=== PATIENT | female | born 1980 | race Caucasian/White ===

== ENCOUNTER → 2021-06-08 | Outpatient (CLI) | payer OTHER ==
[~2021-06-08] MED LIST: MULVITMINE PO
== END ==
LOC: LAB SHORT 14:01
DX: R21 Rash and other nonspecific skin eruption (principal)
CPT/HCPCS: 88312

== ENCOUNTER → 2023-03-20 | Outpatient (CLI) | payer OTHER | END | disposition home or self-care (01) | LOC: LAB SHORT 15:45 → LAB 15:45 | DX: N64.52 Nipple discharge (principal) | CPT/HCPCS: 84146 ==

== ENCOUNTER → 2023-06-08 | Outpatient (CLI) | payer OTHER ==
[2023-06-10 18:06] LABS: HPV 16 Negative (Negative); HPV 18 Negative (Negative); HPV OTHER HR TYPES Negative (Negative)
== END ==
LOC: LAB 18:16 → LAB SHORT 18:16
PROVIDERS: Family Medicine
DX: Z01.419 Encounter for gynecological examination (general) (routine) without abnormal findings (principal)
CPT/HCPCS: 87624; G0145

== ENCOUNTER 2024-01-01 09:09 | Emergency (ER) | payer OTHER ==
[~2024-01-01] VITALS: Ht 170.2 cm; Wt 93.9 kg
[2024-01-01 09:35] VITALS: BP 142/97
== END 2024-01-01 12:03 | disposition home or self-care (01) ==
LOC: ER 09:09
DX: O9A.213 Injury, poisoning and certain other consequences of external causes complicating pregnancy, third trimester (principal); S52.122A Displaced fracture of head of left radius, initial encounter for closed fracture; W01.0XXA Fall on same level from slipping, tripping and stumbling without subsequent striking against object, initial encounter; Z3A.33 33 weeks gestation of pregnancy; Z79.899 Other long term (current) drug therapy

== ENCOUNTER 2024-02-05 22:41 | Inpatient (IN) | payer OTHER ==
[~2024-02-05] VITALS: Ht 170.2 cm; Wt 97.2 kg
[2024-02-05 23:02] VITALS: BP 136/94
[2024-02-05] MEDS ORDERED: Ampicillin Sod 2,000 MG in NS 100 ML IV STA (23:14)
[2024-02-05] MEDS ORDERED: Bupivacaine HCl 2.5 MG/ML 10ML P/F Injection XX SCH (23:15)
[2024-02-05] MEDS ORDERED: Calcium Carbonate 500 MG Tab Chew PO PRN (23:15)
[2024-02-05] MEDS ORDERED: FentaNYL 2mcg/ml-Bup 0.1% Epd 250 ML EPI PRN (23:15)
[2024-02-05] MEDS ORDERED: Lactated Ringer's 1,000 ML IV PRN ×2 (23:15)
[2024-02-05] MEDS ORDERED: Castor Oil 59.146 ML BTL TOP SCH (23:15)
[2024-02-05] MEDS ORDERED: Misoprostol 200 MCG Tab PR SCH (23:15)
[2024-02-05] MEDS ORDERED: Lidocaine HCl 1% 30 ML SDV XX SCH (23:15)
[2024-02-05] MEDS ORDERED: Methylergonovine Maleate 0.2MG / ML 1ML Amp IM SCH (23:15)
[2024-02-05] MEDS ORDERED: Ondansetron HCl 2 MG / ML 2ML Vial IV PRN (23:15)
[2024-02-05] MEDS ORDERED: ePHEDrine Sulfate 50 MG/ML 1ML Injection XX PRN (23:15)
[2024-02-05] MEDS ORDERED: FentaNYL Citrate 50 MCG/ML 2 ML Injection IV PRN (23:15)
[2024-02-05] MEDS ORDERED: LR Oxytocin 20 Units 1,000 ML IV SCH (23:15)
[2024-02-05] MEDS ORDERED: Bupivacaine 0.5% HCl 5 MG/ML 30MLVIAL XX SCH (23:15)
[2024-02-05] MEDS ORDERED: Acetaminophen 500 MG Tab PO PRN (23:15)
[2024-02-05] MEDS ORDERED: Oxytocin 10 Unit / ML Vial IM SCH (23:15)
[2024-02-05] MEDS ORDERED: Lactated Ringer's 1,000 ML IV SCH (23:15)
[2024-02-05 23:55] LABS: BASOPHILS ABSOLUTE AUTO 0.01 K/mm3 (0.00-0.23); BASOPHILS PERCENT AUTO 0 % (0-2); EOSINOPHILS ABSOLUTE AUTO 0.09 K/mm3 (0.00-0.68); EOSINOPHILS PERCENT AUTO 1 % (0-6); Hematocrit 32.6 % (33.0-51.0); Hemoglobin 11.3 g/dL (11.5-16.0); IMMATURE GRAN ABSOLUTE AUTO 0.07 K/mm3 (0.00-0.10); IMMATURE GRAN PERCENT AUTO 1 % (0-1); LYMPHOCYTES ABSOLUTE AUTO 1.76 K/mm3 (0.84-5.20); LYMPHOCYTES PERCENT AUTO 20 % (21-46); MONOCYTES ABSOLUTE AUTO 0.92 K/mm3 (0.16-1.47); MONOCYTES PERCENT AUTO 10 % (4-13); Mean Corpuscular HGB 31.5 pg (26.0-34.0); Mean Corpuscular HGB Conc 34.7 g/dL (31.5-36.5); Mean Corpuscular Volume 91 fL (80-100); NEUTROPHILS ABSOLUTE AUTO 6.18 K/mm3 (1.96-9.15); NEUTROPHILS PERCENT AUTO 68 % (41-73); Platelet Count 146 K/mm3 (150-400); RDW Coefficient Variation 14.7 % (11.7-14.2); RDW Standard Deviation 48.3 fL (35.1-46.3); Red Blood Cell Count 3.59 M/mm3 (3.80-5.20); White Blood Cell Count 9.03 K/mm3 (4.00-11.30)
[2024-02-06] VITALS (13 sets, daily range): BP systolic 118–147; BP diastolic 70–97
[2024-02-06] MEDS ORDERED: Ampicillin Sod 1,000 MG in NS 100 ML IV SCH (04:00)
[2024-02-06] MEDS ORDERED: Lactated Ringer's 1,000 ML IV SCH (05:40)
[2024-02-06] MEDS ORDERED: Docusate Sodium 100 MG Cap PO PRN (05:40)
[2024-02-06] MEDS ORDERED: Ibuprofen 400 MG Tab PO PRN (05:40)
[2024-02-06] MEDS ORDERED: Witch Hazel/Glycerin PADS TOP PRN (05:40)
[2024-02-06] MEDS ORDERED: Benzocaine Topical Anesthetic Spray 60GM TOP PRN (05:40)
[2024-02-06] MEDS ORDERED: Acetaminophen 325 MG TABLET PO PRN (05:45)
[2024-02-06] MEDS ORDERED: OxyCODONE 5 mg/Acetamin 325 mg TABLET PO PRN (05:45)
[2024-02-06] MEDS ORDERED: Lanolin Cream TOP PRN (05:45)
[2024-02-06] MEDS ORDERED: Ketorolac Tromethamine 30mg Vial IV PRN (06:00)
[2024-02-06] MEDS ORDERED: Ketorolac Tromethamine 30mg Vial IV ONE (06:00)
[2024-02-06] MEDS ORDERED: Hydrocortisone 2.5% Cream 30 gm Tube PR PRN (06:05)
[2024-02-06] MEDS ORDERED: Lidocaine 5% Ointment 35 gm TOP PRN (06:05)
[2024-02-06] MEDS ORDERED: Prenatal Vit/FE Fumarate/FA 1 Tab PO SCH (09:00)
--- NOTE | 2024-02-06 12:38 | NUR ---
02/06/24 0830 ice pack applied to pts tailbone area. Pt states that she felt and heard a "pop" when she delivered and believes to have broken her tailbone. states it feels better when she is tilted to the side and ice pack applied
[2024-02-07 00:30] VITALS: BP 117/70
[2024-02-07 06:49] LABS: Hematocrit 30.1 % (33.0-51.0); Mean Corpuscular HGB Conc 33.2 g/dL (31.5-36.5); Mean Corpuscular Volume 93 fL (80-100); Mean Platelet Volume 10.5 fL (9.1-12.4); Platelet Count 116 K/mm3 (150-400); RDW Standard Deviation 51.5 fL (35.1-46.3); Red Blood Cell Count 3.23 M/mm3 (3.80-5.20); White Blood Cell Count 8.55 K/mm3 (4.00-11.30)
[2024-02-07 08:55] VITALS: BP 144/99
[2024-02-07 09:39] VITALS: BP 128/87
[2024-02-07] MEDS ORDERED: IBUP800 PO (10:44)
[2024-02-07] MEDS ORDERED: Aspir 8181 MG PO (10:45)
[2024-02-07] MEDS ORDERED: LIDO700A20 TOP (10:46)
[2024-02-07 11:12] VITALS: BP 119/78
--- NOTE | 2024-02-07 11:56 | NUR ---
02/07/24 1100 assisted pt with putting on knee high compression socks
== END 2024-02-07 11:45 | disposition home or self-care (01) | DRG 807 ==
LOC: OBS 22:41 → BC 22:43 → OBS 23:14 → BC 23:15
PROVIDERS: ADMIT Family Medicine
PROC: 10E0XZZ Delivery of Products of Conception, External Approach (ICD-10-PCS; principal; 2024-02-06)
DX: O99.824 Streptococcus B carrier state complicating childbirth (principal); Z37.0 Single live birth; O70.0 First degree perineal laceration during delivery; Z3A.38 38 weeks gestation of pregnancy
CPT/HCPCS: 36415; 59025; 81003; 85025; 85027; 86850; 86900; 86901; A9270; J0290; J1885; J7120

== ENCOUNTER → 2024-03-05 | Outpatient (CLI) | payer OTHER ==
[~2024-03-05] MED LIST changes: +Aspir 8181 MG PO; +IBUP800 PO; +LIDO700A20 TOP
[2024-03-05 19:32] LABS: Appearance, Urine Clear (Clear); Bilirubin, Urine Neg (Neg); Blood, Urine 2+ (Neg); Color, Urine Yellow (P-Yellow); Glucose Qualitative, Urine Neg (Neg); Ketones, Urine Neg (Neg); Leukocyte Esterase, Urine 2+ (Neg); Nitrite, Urine Neg (Neg); Protein, Urine Neg (Neg); Urobilinogen, Urine NORM (Normal)
[2024-03-05 19:43] LABS: Bacteria Mod /hpf; Squamous Epithelial Cells Few /hpf (Few)
[2024-03-05 21:07] LABS: Albumin, Blood 4.1 g/dL (3.4-5.0); Albumin/Globulin Ratio 1.3 (0.8-1.8); Bilirubin, Total 0.3 mg/dL (0.1-1.0); Calcium, Blood 9.1 mg/dL (8.5-10.1); Creatinine, Blood 0.58 mg/dL (0.40-1.00); Globulin, Blood 3.2 g/dL (2.2-4.0); Potassium, Blood 3.7 mmol/L (3.5-5.5); Total Protein, Blood 7.3 g/dL (6.4-8.2)
== END ==
LOC: LAB 18:47 → LAB SHORT 18:47
PROVIDERS: Family Medicine
DX: O16.5 Unspecified maternal hypertension, complicating the puerperium (principal)
CPT/HCPCS: 80053; 81001

== ENCOUNTER → 2024-06-27 | Outpatient (CLI) | payer OTHER ==
[2024-06-27 20:10] LABS: Percent Saturation 22.9 % (15.0-50.0)
== END | disposition home or self-care (01) ==
LOC: LAB SHORT 18:55 → LAB 18:55
PROVIDERS: Family Medicine
DX: D64.9 Anemia, unspecified (principal)
CPT/HCPCS: 82728; 83540; 83550

== ENCOUNTER → 2025-03-17 | Outpatient (CLI) | payer OTHER ==
[2025-03-17 18:03] LABS: Creatinine, Urine Random 62.7 mg/dL (27.00-270.00); Protein, Urine Random 10.4 mg/dL (0.0-11.9); Protein/Creat Ratio, Ur Random 0.2
[2025-03-17 19:42] LABS: BASOPHILS ABSOLUTE AUTO 0.04 K/mm3 (0.00-0.23); BASOPHILS PERCENT AUTO 1 % (0-2); EOSINOPHILS ABSOLUTE AUTO 0.18 K/mm3 (0.00-0.68); EOSINOPHILS PERCENT AUTO 3 % (0-6); Hematocrit 36.6 % (33.0-51.0); Hemoglobin 12.0 g/dL (11.5-16.0); IMMATURE GRAN ABSOLUTE AUTO 0.01 K/mm3 (0.00-0.10); IMMATURE GRAN PERCENT AUTO 0 % (0-1); LYMPHOCYTES ABSOLUTE AUTO 2.16 K/mm3 (0.84-5.20); LYMPHOCYTES PERCENT AUTO 36 % (21-46); MONOCYTES ABSOLUTE AUTO 0.48 K/mm3 (0.16-1.47); MONOCYTES PERCENT AUTO 8 % (4-13); Mean Corpuscular HGB Conc 32.8 g/dL (31.5-36.5); Mean Corpuscular Volume 94 fL (80-100); NEUTROPHILS ABSOLUTE AUTO 3.11 K/mm3 (1.96-9.15); NEUTROPHILS PERCENT AUTO 52 % (41-73); NRBC ABSOLUTE 0.00 K/mm3 (0.00-0.02); NRBC Auto 0.0 /100 WBC (0.0-0.2); Platelet Count 212 K/mm3 (150-400); RDW Coefficient Variation 12.3 % (11.7-14.2); RDW Standard Deviation 42.8 fL (35.1-46.3)
[2025-03-17 21:04] LABS: Alanine Aminotransfer (ALT/SGP 31 U/L (12-78); Albumin, Blood 4.1 g/dL (3.4-5.0); Albumin/Globulin Ratio 1.4 (0.8-1.8); Anion Gap 3 mmol/L (3-11); Aspartate Aminotrans (AST/SGOT 14 U/L (12-37); Bilirubin, Total 0.4 mg/dL (0.1-1.0); Blood Urea Nitrogen 12 mg/dL (8-24); CHOL/HDL RATIO 3.5; CO2, Blood 31 mmol/L (21-32); Calcium, Blood 8.7 mg/dL (8.5-10.1); Chloride, Blood 107 mmol/L (98-108); Cholesterol 245 mg/dL (50-200); Creatinine, Blood 0.56 mg/dL (0.40-1.00); Globulin, Blood 2.9 g/dL (2.2-4.0); Glucose, Blood 74 mg/dL (70-99); HDL Cholesterol 70 mg/dL (>39); LDL/HDL RATIO 2.2; Low Density Lipoprotein Chol 153 mg/dL (0-110); Potassium, Blood 3.4 mmol/L (3.5-5.5); Sodium, Blood 138 mmol/L (136-145); Thyroid Stimulating Hormone 1.990 uIU/mL (0.360-4.800); Total Protein, Blood 7.0 g/dL (6.4-8.2); Triglycerides 109 mg/dL (30-160); Very Low Density Lipoprot Chol 21 mg/dL (6-32)
== END ==
LOC: LAB SHORT 16:02 → LAB 16:02
DX: I10 Essential (primary) hypertension (principal)
CPT/HCPCS: 80053; 80061; 82570; 84156; 84443; 85025